=== PATIENT | female | born 1945 | race Caucasian/White ===

== ENCOUNTER → 2023-05-08 | Outpatient (CLI) | payer MEDICARE ==
[2023-05-08 14:55] LABS: HCT 38.6 % (37.2-46.3); HGB 12.8 d/dL (12.0-15.0); MCH 33.9 pg (27.0-32.0); MCHC 33.2 d/dL (32.0-37.0); MCV 102.1 FL (80.0-97.0); Mean Platelet Volume 11.5 FL (9.5-12.2); NRBC Per 100 WBC 0 X 10*3/uL (0.00-0.01); Platelet Count 247 X 10*3/uL (140-440); RBC 3.78 X 10*6/uL (4.10-5.20); RDW 14.3 % (11.5-14.5); WBC 8.87 X 10*3/uL (4.50-10.00)
[2023-05-08 16:13] LABS: Carbon Dioxide 24.8 mmol/L (21.6-31.8); Chloride 103 mmol/L (96-109); Potassium 4.4 mmol/L (3.5-5.5); Sodium 141 mmol/L (135-145)
== END | disposition home or self-care (01) ==
LOC: LABPAT 10:37
PROVIDERS: ATTEND Internal Medicine Interventional Cardiology
DX: Z01.812 Encounter for preprocedural laboratory examination (principal); R07.9 Chest pain, unspecified
CPT/HCPCS: 80051; 82565; 84520; 85027

== ENCOUNTER 2023-05-20 05:41 | Day surgery (SDC) | payer BC, MEDICARE ==
[2023-05-20] MEDS ORDERED: ASPIRIN 81 MG ONE (06:11)
[2023-05-20] MEDS ORDERED: ASPIRIN 325 MG TAB PO STA (06:16)
[2023-05-20] MEDS ORDERED: SODIUM CHLORIDE 0.9% 1,000 ML in EMPTY BAG 1 BAG IV SCH (06:16)
[2023-05-20] MEDS ORDERED: ATORVASTATIN 80 MG TAB PO STA (06:16)
[2023-05-20] MEDS ORDERED: NITROGLYCERIN SL TABS 0.4 MG TAB SUBLINGUAL PRN (06:16)
[2023-05-20] MEDS ORDERED: ALPRAZolam 0.5 MG TAB PO PRN (06:16)
[2023-05-20] MEDS ORDERED: HEPARIN SODIUM,PORCINE 10,000 UNIT in SODIUM CHLORIDE 0.9% 1,000 ML IRRIGATION PRN (06:16)
[2023-05-20] MEDS ORDERED: HEPARIN SODIUM,PORCINE (1 ML) 2,500 UNIT in SODIUM CHLORIDE 0.9% 250 ML IRRIGATION PRN (06:16)
[2023-05-20] MEDS ORDERED: ALPRAZolam 0.25 MG TAB PO PRN (06:16)
[2023-05-20 07:00] LABS: INR 1.3 (<1.2); Prothrombin Time 13.5 sec (9.0-12.0)
[2023-05-20] MEDS ORDERED: LIDOCAINE 1% INJ 10MG/ML (20 ML MDV) ONE (07:12)
[2023-05-20] MEDS ORDERED: VERAPAMIL 2.5 MG/ML 2 ML AMP ONE (07:12)
[2023-05-20] MEDS ORDERED: HEPARIN SODIUM 1,000 UN/ML (10ML VL) ONE (07:37)
[2023-05-20] MEDS ORDERED: MIDAZOLAM 2 MG/2 ML VIAL IVP ONE (07:40)
[2023-05-20] MEDS ORDERED: LIDOCAINE 1% INJ 10MG/ML (20 ML MDV) SQ ONE (07:42)
[2023-05-20] MEDS ORDERED: VERAPAMIL SYRINGE (5 MG/10 ML) INTRAARTER ONE (07:43)
[2023-05-20] MEDS ORDERED: IV FLUID CONTINUATION 1,000 ML IV ONE (07:44)
[2023-05-20] MEDS ORDERED: HEPARIN SODIUM 1,000 UN/ML (10ML VL) IV ONE (07:46)
[2023-05-20] MEDS ORDERED: IOPAMIDOL-370 100ML BTL INJ ONE (07:51)
[2023-05-20] MEDS ORDERED: RX INFO: IV CONTRAST WAS GIVEN 1 EACH MISC MISCELLANE PRN (07:58)
[2023-05-20] MEDS ORDERED: SODIUM CHLORIDE 0.9% 1,000 ML IV SCH (08:00)
--- NOTE | 2023-05-20 08:01 | P.PCN ---
Date of Procedure: 05/20/23 Operative Findings: CARDIAC CATHETERIZATION PERFORMING PHYSICIAN: Danyel White MD, RPVI PROCEDURE PERFORMED: 1. Selective right and left coronary angiogram 2. Left heart catheterization INDICATION: Chest discomfort and abnormal stress test in this 77-year-old female patient with multiple risk factors COMPLICATION: None APPROACH: Right radial artery LEVEL OF SEDATION: Moderate with a sedation length of 14 minutes PROCEDURE DESCRIPTION: After obtaining an informed consent, the patient was brought to cardiac cardiac catheterization technologist. Local anesthesia was performed using lidocaine subcutaneously. The right radial artery was cannulated using Seldinger technique, the guidewire passed easily, following that we advanced a 5-Haitian sheath dilator assembly, the wire and dilator were removed and sheath was flushed. Following that, 2 mg of verapamil along with 5000 unit heparin were given. Selective right and left coronary angiogram using a 6-H[place]ian JR4 and JL 3.5 catheters. Following that we did left heart catheterization using 6-Haitian pigtail catheter. The procedure was completed there was no complication. SELECTIVE CORONARY ANGIOGRAM: The right coronary artery: Large caliber vessel and a dominant vessel and appears to be angiographically normal. Left main: It is angiographically normal. Bifurcates into LCx and LAD The left circumflex: Large caliber vessel. Its angiographically normal. Gives rises into OM1 and OM 2 and ointment 3 and all appeared to be angiographically normal The left anterior descending artery: Large caliber vessel and seems to be angiographically normal. Gives rise into a diagonal branch which seems to be normal HEMODYNAMICS: The LVEDP was 8 mmHg was no significant gradient across aortic valve CONCLUSION: 1. Normal coronary angiogram 2. Normal left-sided filling pressure POSTPROCEDURE MANAGEMENT: Medical treatment
[2023-05-20 08:15] VITALS: TEMP 98
[2023-05-20 18:13] VITALS: BP 138/70
[2023-05-20 18:14] VITALS: PULSE 66; RESP 16
== END 2023-05-20 13:23 | disposition home or self-care (01) ==
LOC: CATHCVL 05:41
PROVIDERS: ATTEND Internal Medicine Interventional Cardiology
DX: R07.89 Other chest pain (principal); I10 Essential (primary) hypertension; I73.9 Peripheral vascular disease, unspecified; E78.5 Hyperlipidemia, unspecified; Z79.899 Other long term (current) drug therapy
CPT/HCPCS: 93458; 85610; J2250; J2001; J1644; Q9967